=== PATIENT | female | born 1950 | race Caucasian/White ===

== ENCOUNTER 2023-12-02 13:47 | Emergency (ER) | payer MEDICARE, OTHER, SELFPAY ==
[2023-12-02 13:56] VITALS: BP 124/94
[2023-12-02 14:41] VITALS: BMI 21.6
[2023-12-02 15:00] VITALS: BP 125/77
[2023-12-02 15:32] VITALS: BP 125/77
[2023-12-02] MEDS: NSS 1000 IV (15:39)
--- NOTE | 2023-12-02 15:39 | ED.GENMED ---
History of Present Illness
General
Chief Complaint: Heart Rate Problem
Source: patient
Exam Limitations: none
Time Seen by Provider: 12/02/23 15:26
Nursing documentation reviewed up to this point in time: agreed with
Travel History
Have you had any contact with someone who has COVID-19?: No
Do you have any symptoms of coronavirus? Fever > 100 degrees, chills, cough, shortness of breath, sore throat, loss of taste or smell, muscle aches, or headache?: No
History of Present Illness
History of Present Illness:
73-year-old female with history of HLD, Sjogren's, SVT on Diltiazem 180 mg at bedtime presents stating she gets intermittent bouts of SVT lasting minutes but they usually pass if she lays down for a while. Her last such episode was 3-4 weeks ago.
Today she felt her typical 'funny feeling' in the chest and looked at her watch and her HR was 130's to 150's. This was 4 hours ago and it continues. Denies CP, SOB, it just never lasted this long. Last increase in Diltiazem was 'years ago.' States
'I feel fine.'
Past History
Past History
ED Past Medical History: Arrthythmia (SVT on Cardizem), Hypercholesterolemia and Other (Siogren's, Cataracts,)
ED Past Surgical History: Appendectomy, Gynecological (Ovarian cyst) and Tonsilectomy
Social History
Tobacco: Former smoker
Alcohol: Daily (Wine one glass daily)
Personal:
Living: with family
Review of Systems
Review of Systems
Allergies reviewed?: Yes
All Other Systems: ROS reviewed and negative except as documented in HPI and ROS
Constitutional: Denies fever or fatigue
Cardiac: Reports palpitations ('funny feeling' in chest she gets when she has SVT); Denies chest pain, diaphoresis or syncope
ABD/GI: Denies abdominal pain, nausea or vomiting
: Denies dysuria or difficulty voiding
Musculoskeletal: Reports no symptoms
Skin: Reports no symptoms
Neurological: Reports no symptoms
Phy Exam
Physical Exam
Physical Exam:
GENERAL: No acute distress. A&Ox3.
CONSTITUTIONAL: Afebrile.
EYES: clear, conjunctivae normal
ENMT: moist mucus membranes, Pharynx nl
RESPIRATORY: Regular respirations, nonlabored, lungs clear.
CARDIOVASCULAR: SVT rate 130-150's. no murmurs, no rubs.
GI: Soft, nontender, normal BS
MUSCULOSKELETAL: Moves with ease. Well perfused.
SKIN: Warm, dry, pink
PSYCH: Normal mood and affect. Well kept, interactive and appropriate
NEUROLOGIC: Awake, alert and oriented. No focal neurological deficits
Course
Orders/Labs/Results
Orders:
Orders
12/02/23 13:50
EKG [Electrocardiogram (*1)] Urgent
Reason for Study: Palpitations
12/02/23 13:51
EKG- Treatment ONCE
12/02/23 15:38
0.9% Sodium Chloride 1000 ml [Nss] 1,000 ml IV BOLUS
12/02/23 15:39
Complete Blood Count/No Diff Urgent
Comprehensive Metabolic Panel Urgent
TSH Urgent
12/02/23 15:43
Troponin I Urgent
12/02/23 15:46
Diltiazem HCl [Cardizem] 10 mg IV NOW STA
12/02/23 16:03
EKG [Electrocardiogram (*1)] Urgent
Reason for Study: Other
Other Reason for Exam: SVT conversion
12/02/23 16:04
EKG- Treatment ONCE
Abnormal Lab Results
12/02/23
15:39
RBC 4.14 L 10^6/uL
(4.20-5.40)
Hct 36.7 L %
(37.0-47.0)
Sodium 132 L mmol/L
(135-145)
Carbon Dioxide 20 L mmol/L
(22-30)
BUN 20 H mg/dl
(7-17)
Total Protein 8.8 H g/dl
(6.3-8.2)
TSH 4.76 H uIU/ml
(0.47-4.68)
12/02/23 15:39
12/02/23 15:39
Vital Signs
Initial and Last Documented VS:
Initial Vital Signs
Temp Pulse Resp BP Pulse Ox
98.4 F 160 22 124/94 95
12/02/23 13:56 12/02/23 13:56 12/02/23 13:56 12/02/23 13:56 12/02/23 13:56
Last Documented Vital Signs
Temp Pulse Resp BP Pulse Ox
98.4 F 64 18 112/82 94
12/02/23 13:56 12/02/23 16:45 12/02/23 16:45 12/02/23 16:00 12/02/23 16:45
MDM/Problems Addressed
MDM/Problems Addressed:
73-year-old female with history of HLD, Sjogren's, SVT on Diltiazem 180 mg at bedtime presents stating she gets intermittent bouts of SVT lasting minutes but they usually pass if she lays down for a while. Her last such episode was 3-4 weeks ago.
Today she felt her typical 'funny feeling' in the chest and looked at her watch and her HR was 130's to 150's. This was 4 hours ago and it continues. Denies CP, SOB, it just never lasted this long. Last increase in Diltiazem was 'years ago.' States
'I feel fine.'
EKG: SVT rate 150
3:51 PM
HR 130-140's on bedside monitor
Will give Cardizem [address] Sales, Cardiology notified.
4:30 PM
CBC, CMP with no clinically significant abnormality, IV fluids. BUN 20, IV fluids infusing for mild dehydration
TSH minimally elevated, pt aware, this is not new, pt states 'it's been fluctuating,' followed by her [employer]
After Cardizem, patient converted to NSR.
Dr. Sales agrees that pt is to increase Cardizem to 240 mg HS
Pt will call Dr. Lopez's office tomorrow for follow up
*Critical Care Note
Total Time (30-74mins, 75-104mins- exclusive of procedures): Not Applicable
ED Attending Note
-
Portions of this chart may have been created with voice recognition software.� Occasional wrong word or��sound alike� substitutions may have occurred due to the inherent limitations of voice recognition software.
Discharge Plan
Departure
Patient Disposition: Home (Routine Discharge)
Date of Disposition: 12/02/23
Time of Disposition: 16:41
Patient with high blood pressure during this ER visit?: No
Condition: Good
Discharge Problem:
Paroxysmal supraventricular tachycardia
Instructions: Supraventricular tachycardia (SVT)
Prescriptions:
New
diltiazem HCl 240 mg capsule,extended release 24hr
240 mg PO DAILY Qty: 60 0RF
No Action
pilocarpine HCl 5 mg tablet
5 mg PO BID
atorvastatin 10 mg Tablet
10 mg PO HS
diltiazem HCl 180 mg capsule,extended release 24hr
180 mg PO HS
Theragen Tablet
1 tab PO DAILY
calcium carbonate [Tums Ultra] 400 mg calcium (1,000 mg) Tablet,Chewable
400 mg PO HS
fiber Capsule
3 cap PO DAILY
coenzyme Q10 [CoQ-10] 100 mg Capsule
100 mg PO DAILY
Artificial Tears (PF) 0.1-0.3 % Dropperette
1 drp BOTH EYES BIDPRN PRN (Reason: dry eyes)
Referrals:
Dedra Burkett MD [Family Provider] -
Nima Lopez MD [Active] - Call in 1-3 days for appt
Activity Restrictions/Additional Instructions:
As we discussed, increase your Diltiazem to 240 mg at bedtime. I sent a prescription to your pharmacy for this.
Call Dr. Lopez's office tomorrow, inform of today's visit and ask when they want to see you for follow-up.
Interventions
Interventions:
*Risk Screen - Suicide Last Done: 12/02/23 13:57
*General Assessment Last Done: 12/02/23 13:57
*Neglect/Abuse Screening Last Done: 12/02/23 13:57
ED- Fall Risk Assessment Last Done: 12/02/23 16:57
*ED COVID-19 Vaccine History Last Done: 12/02/23 16:57
*Nursing Disposition Last Done: 12/02/23 16:57
ED- Cardiac Assessment Last Done: 12/02/23 15:32
ED- Pulmonary Assessment Last Done: 12/02/23 15:32
Discharge Date and Time
Discharge Date/Time: 12/02/23 16:57
Print Language: CHINESE
[2023-12-02 15:50] LABS: Hematocrit 36.7 % (37.0-47.0); Hemoglobin 12.5 g/dL (12.0-16.0); Mean Corp Hgb Conc. 34.1 g/dL (33.0-37.0); Mean Corpuscular Hgb 30.2 pg (27.0-31.0); Mean Corpuscular Volume 88.6 fL (81.0-99.0); Platelet Count 314 10^3/uL (130-400); Red Blood Cell Count 4.14 10^6/uL (4.20-5.40); Red Cell Dist. Width 13.6 % (11.5-14.5); White Blood Cell Count 5.4 10^3/uL (4.8-10.8)
[2023-12-02] MEDS: CARDIZEM 10 MG IV (15:59)
[2023-12-02 16:00] VITALS: BP 112/82
[2023-12-02 16:03] LABS: ALT (SGPT) 19 U/L (0-35); AST (SGOT) 32 U/L (14-36); Albumin 3.9 g/dl (3.5-5.0); Alkaline Phosphatase 74 U/L (38-126); Blood Urea Nitrogen 20 mg/dl (7-17); Calcium 9.9 mg/dl (8.4-10.2); Carbon Dioxide 20 mmol/L (22-30); Chloride 104 mmol/L (98-107); Estimated Creatinine Clearance 56 ml/min; Glucose 98 mg/dl (70-99); Potassium 3.8 mmol/L (3.5-5.1); Sodium 132 mmol/L (135-145); Total Bilirubin 0.4 mg/dl (0.2-1.3); Total Protein 8.8 g/dl (6.3-8.2); eGFR > 60.00
[2023-12-02 16:13] LABS: Troponin I < 0.012 ng/ml
[2023-12-02 16:34] LABS: TSH 4.76 uIU/ml (0.47-4.68)
== END 2023-12-02 16:57 | disposition home or self-care (01) ==
LOC: EMR 13:47
PROVIDERS: Registered Nurse; EMERGENCY PHYSICIAN Emergency Medicine; FAMILY PHYSICIAN Family Medicine
DX: I47.19 Other supraventricular tachycardia (principal); E86.0 Dehydration; E78.00 Pure hypercholesterolemia, unspecified; M35.00 Sjogren syndrome, unspecified; Z79.899 Other long term (current) drug therapy; Z87.891 Personal history of nicotine dependence; Z88.0 Allergy status to penicillin
CPT/HCPCS: 99284; 96374; 96361; 80053; 84443; 84484; 85027; 93005

== ENCOUNTER → 2024-03-02 09:06 | Outpatient (REF) | payer MEDICARE, OTHER, SELFPAY ==
[2024-03-02 09:48] LABS: ALT (SGPT) 23 U/L (0-35); AST (SGOT) 36 U/L (14-36); Albumin 4.3 g/dl (3.5-5.0); Alkaline Phosphatase 70 U/L (38-126); Blood Urea Nitrogen 17 mg/dl (7-17); Calcium 9.4 mg/dl (8.4-10.2); Carbon Dioxide 25 mmol/L (22-30); Chloride 103 mmol/L (98-107); Glucose 109 mg/dl (70-99); Potassium 4.1 mmol/L (3.5-5.1); Sodium 137 mmol/L (135-145); Total Bilirubin 0.4 mg/dl (0.2-1.3); Total Protein 9.3 g/dl (6.3-8.2); eGFR > 60.00
[2024-03-02 09:55] LABS: % Basophils 1.1 % (0-2); % Eosinophils 6.8 % (0-6); % Immature Granulocytes 0.3 % (0-0.5); % Lymphocytes 39.2 % (20.5-51.1); % Monocytes 10.1 % (1.7-9.3); % Neutrophils 42.5 % (42.2-75.2); Absolute Eosinophils 0.2 10^3/uL (0-0.7); Absolute Lymphocytes 1.4 10^3/uL (1.2-3.4); Absolute Monocytes 0.4 10^3/uL (0.1-0.6); Absolute Neutrophils 1.5 10^3/uL (1.4-6.5); Hematocrit 40.3 % (37.0-47.0); Hemoglobin 13.6 g/dL (12.0-16.0); Mean Corp Hgb Conc. 33.7 g/dL (33.0-37.0); Mean Corpuscular Hgb 30.5 pg (27.0-31.0); Mean Corpuscular Volume 90.4 fL (81.0-99.0); Mean Platelet Volume 9.1 fL (7.4-10.4); Nucleated Red Blood Cells % 0 %; Platelet Count 359 10^3/uL (130-400); Red Blood Cell Count 4.46 10^6/uL (4.20-5.40); White Blood Cell Count 3.6 10^3/uL (4.8-10.8)
== END ==
LOC: SDSPAT 09:06
PROVIDERS: ATTENDING PHYSICIAN Internal Medicine Cardiovascular Disease; FAMILY PHYSICIAN Family Medicine; OTHER PHYSICIAN Internal Medicine Cardiovascular Disease; OTHER PHYSICIAN Internal Medicine Rheumatology
DX: Z01.818 Encounter for other preprocedural examination (principal); I49.5 Sick sinus syndrome; I47.10 Supraventricular tachycardia, unspecified; I10 Essential (primary) hypertension; I35.0 Nonrheumatic aortic (valve) stenosis
CPT/HCPCS: 36415; 80053; 85025; 93005

== ENCOUNTER 2024-03-30 09:03 | Day surgery (SDC) | payer MEDICARE, OTHER, SELFPAY ==
[2024-03-02 09:13] VITALS: BMI 20.7
[2024-03-30] VITALS (13 sets, daily range): BP systolic 119–160; BP diastolic 47–76
[2024-03-30] MEDS: VANCOCIN 200 IV (09:49)
[2024-03-30] MEDS: NSS 500 IV (09:50)
--- NOTE | 2024-03-30 11:35 | ITS.CL.PACE ---
[facility]aser - Pacemaker Implant
Pacemaker Implant
Procedure Report:
Dual Chamber Pacemaker Placement:
Ms. Gómez is a very pleasant 74 yrs old woman who presented with Tachy Alberto syndrome and severe bradycardia and is recommended for PPM placement.�
Indications: Tachy Alberto syndrome
Date of the Procedure: 03/30/24
Pre-Operative Diagnosis: Tachy Alberto syndrome
Post-Operative Diagnosis: Tachy Alberto syndrome
Procedure Performed: DUAL CHAMBER PACEMAKER IMPLANTATION
Performing Physician:
Broderick Saba MD
Assistants:
EP staff
Anesthesia:
See Anesthesia report
Pre-operative antibiotics:
Vanco and Aztreonam
Detailed Description of the Procedure:
The patient was identified using hospital identification and informed consent obtained for the procedure. The risks were explained including, but not limited to: Bleeding, infection, arrhythmia, stroke, vascular/cardiac/lung puncture, surgery,
pacemaker dependency/device malfunction. All questions were answered.
The patient was brought to the electrophysiology laboratory in stable condition in fasting state. Continuous electrocardiographic and hemodynamic monitoring was initiated.
The initial rhythm was normal sinus rhythm.
A surgical pause and time out was performed immediately prior to the procedure with review of her medical history, recent labs, allergies and medications with site of procedure identified and consent noted in the chart. Antibiotics pre operatively
given. All team members concurred.
The procedure site was meticulously prepared with surgical scrub and allowed to dry with no pooling. Sterile draping was applied to cover the procedure site. The image intensifier was draped with sterile bag and positioned over the patient.
The left infraclavicular region was prepped and draped in the usual sterile fashion. Local anesthesia was administered subcutaneously using 1% lidocaine / Bupivacaine. The left cephalic vein cutdown was performed with an incision at the
delto-pectoral groove, and vascular sheaths were introduced for lead access. These were advanced into the right ventricle and the right atrium.
There were extreme tortuosity noted in the subclavian vein and long sheaths were needed. The cardiac chambers were rotated as well.
The right ventricular lead was secured in position with an active fixation technique at the apical septal location.
The RA lead was attached in the right atrial appendage with active fixation.
There was excellent sensing, pacing, and impedance from the leads, with no diaphragmatic stimulation at 10 V output.�Bovie cautery, antibiotics, and fluoroscopy were used.
The sheaths were withdrawn, and the thresholds remained acceptable. The leads were secured in position at the venous entry site with 0-silk. A pocket was fashioned contiguous to the incision. The electrode terminals were connected to the pulse
generator, which was placed into the pocket. The wound was irrigated thoroughly with antibiotic solution.
The wound was closed in 3 layers using 2-0 V loc then two layers of 4-0 V loc sutures to the dermis. Steri-strips were applied externally and covered with Aquacel bandage.
Procedure End:
The procedure was tolerated well.
Estimated Blood loss:
2 cc
Specimens Removed:
No cultures and no specimens were obtained. No intraoperative pathology was identified.
Fluoro time:
0.2 min / 0.24mGy
Urine output:
None
Packs / Drains/ Tubes:
None
Instrument / Sponge Count Correct:
Yes
Complications of the Procedure:
None
Condition of Patient at Time of Transfer:
Hemodynamically stable with no neurological or vascular compromise.
Device information:�
Generator: [facility]; Model: W1DR01; Serial # [id number]�
Atrial Lead:
[facility]; Model: 5076-45; Serial # [id number]�
Measured data in the right atrium was sensing of 2.0 mV, impedance of 838 ohms and threshold of 1.0 V at 0.4ms.
RV Lead:
[employer]; Model: 5076-52; Serial # [id number]
Measured data in the RV lead was sensing of 8 mV, impedance of 940 ohms and threshold of 0.75 V at 0.4ms�
Alberto parameter settings were AAIR < = > DDDR 60-130 bpm. �
����������� Mode Switch: On
����������� Paced AV interval: 180ms
����������� Sensed AV interval: 150 ms.
����������� Rate Adaptive A-V Interval: Off
Output parameters:
����������������������� Amplitude (V)������������� Pulse Width (ms)������� Sensitivity (mV)
����������� RA: ���� 3.5 ����������������� ����������� 0.4������������������ ����������� 0.3
����������� RV:����� 3.5������������������ ����������� 0.4������������������ ����������� 0.9
Summary:
Successful implantation of MRI compatible dual chamber pacemaker
Results/Recommendations:
-Please follow up CXR�
1. Please provide patient with adequate pain control�
Instructions to be given to patient:�
- Please follow up with Cardiology at [address] [place] [address] ([phone]) to get your wound checked within 14 days of your discharge.
- Do not wet incision site until after it is evaluated at cardiology clinic. No soaking or bath until then. Showers or Sponge baths are OK.�Dab dry the area after a shower.
- Do not lift left elbow above shoulder, particularly with sudden jerking movements, for 1 month�
- Do not lift anything weighing more than 10 pounds with the left arm for 1 month�
- If you notice any fevers, shortness of breath, lightheadedness, chest pain, or worsening swelling in the wound site, please contact the arrhythmia clinic, contact your hospitality director, or present to the hospital for evaluation.�
Broderick Saba MD
Electrophysiology
[2024-03-30] MEDS: TYLENOL 650 MG PO (12:08)
--- NOTE | 2024-03-30 16:00 | W.PN.UPDATE ---
Update Note
Progress Note Update
Pt seen post PPM implant. Left ACW aquacel dressing CDI, no ht/bleeding. Sling on overnight. Activity limitations reviewed with pt. Post CXR w/stable lead position, no pneumothorax. Post EKG Apaced 66, underlying sinus rhythm. Will continue all meds
as before. Incision check in 1 week at [facility] arranged. Home today if device site/tele remain stable.
== END 2024-03-30 15:35 | disposition home or self-care (01) ==
LOC: CATH 09:03
PROVIDERS: ATTENDING PHYSICIAN Internal Medicine Cardiovascular Disease; FAMILY PHYSICIAN Family Medicine; OTHER PHYSICIAN Internal Medicine Cardiovascular Disease; OTHER PHYSICIAN Internal Medicine Rheumatology
DX: I49.5 Sick sinus syndrome (principal); I47.10 Supraventricular tachycardia, unspecified; I10 Essential (primary) hypertension; E78.5 Hyperlipidemia, unspecified; K21.9 Gastro-esophageal reflux disease without esophagitis; M19.90 Unspecified osteoarthritis, unspecified site; M35.00 Sjogren syndrome, unspecified; Z87.891 Personal history of nicotine dependence; Z82.49 Family history of ischemic heart disease and other diseases of the circulatory system
CPT/HCPCS: 33208; C1892; 71045; 93005; C1785; C1898

== ENCOUNTER → 2024-04-07 10:16 | Outpatient (REF) | payer MEDICARE, OTHER, SELFPAY ==
[2024-04-07 13:36] LABS: % Basophils 0.8 % (0-2); % Eosinophils 5.5 % (0-6); % Immature Granulocytes 0.4 % (0-0.5); % Lymphocytes 25.8 % (20.5-51.1); % Monocytes 12.2 % (1.7-9.3); % Neutrophils 55.3 % (42.2-75.2); Absolute Eosinophils 0.3 10^3/uL (0-0.7); Absolute Lymphocytes 1.2 10^3/uL (1.2-3.4); Absolute Monocytes 0.6 10^3/uL (0.1-0.6); Absolute Neutrophils 2.6 10^3/uL (1.4-6.5); Hematocrit 37.5 % (37.0-47.0); Hemoglobin 12.7 g/dL (12.0-16.0); Mean Corp Hgb Conc. 33.9 g/dL (33.0-37.0); Mean Corpuscular Hgb 30.8 pg (27.0-31.0); Mean Corpuscular Volume 90.8 fL (81.0-99.0); Mean Platelet Volume 9.5 fL (7.4-10.4); Nucleated Red Blood Cells % 0 %; Platelet Count 326 10^3/uL (130-400); Red Blood Cell Count 4.13 10^6/uL (4.20-5.40); Red Cell Dist. Width 13.5 % (11.5-14.5); White Blood Cell Count 4.8 10^3/uL (4.8-10.8)
== END ==
LOC: REG 10:16
PROVIDERS: ATTENDING PHYSICIAN Nurse Practitioner; FAMILY PHYSICIAN Family Medicine
DX: R06.02 Shortness of breath (principal)
CPT/HCPCS: 93308; 36415; 85025; 93321; 93325

== ENCOUNTER 2024-05-20 10:01 | Emergency (ER) | payer MEDICARE, OTHER, SELFPAY ==
[2024-05-20 10:08] VITALS: BP 160/86
[2024-05-20 10:52] LABS: INR 0.96; PT 12.8 Sec (11.4-14.6)
[2024-05-20 10:54] LABS: ALT (SGPT) 27 U/L (0-35); AST (SGOT) 39 U/L (14-36); Albumin 4.4 g/dl (3.5-5.0); Alkaline Phosphatase 78 U/L (38-126); Blood Urea Nitrogen 17 mg/dl (7-17); Calcium 9.6 mg/dl (8.4-10.2); Carbon Dioxide 25 mmol/L (22-30); Chloride 102 mmol/L (98-107); Glucose 96 mg/dl (70-99); Potassium 4.4 mmol/L (3.5-5.1); Sodium 137 mmol/L (135-145); Total Bilirubin 0.4 mg/dl (0.2-1.3); Total Protein 9.5 g/dl (6.3-8.2); eGFR 58.75
--- NOTE | 2024-05-20 11:44 | ED.GENMED ---
History of Present Illness
General
Chief Complaint: Chest Pain
Source: patient
Time Seen by Provider: 05/20/24 11:27
History of Present Illness
History of Present Illness:
74-year-old female presents the emergency room complaining of chest pain. Pain is located in her anterior chest. Pain began around dinnertime last evening. It has been constant since then. Deep breaths seem to make it worse. Also seems worse
with certain movements. She does not feel short of breath. Patient notes that she did just returned from a trip to [place]. She did have a bit of a viral illness that she is recovering from while there. Pain is not worse with exertion. She has
not had any associated nausea or diaphoresis.
Past History
Past History
ED Past Medical History: Arrthythmia (SVT on Cardizem), Hypercholesterolemia and Other (Siogren's, Cataracts,)
ED Past Surgical History: Appendectomy, Gynecological (Ovarian cyst) and Tonsilectomy
Social History
Tobacco: Former smoker
Alcohol: Daily (Wine one glass daily)
Personal:
Living: with family
Phy Exam
Physical Exam
Physical Exam:
General: Awake, Alert, Oriented X3. No acute distress.
Vitals: unremarkable
Head: Atraumatic
Eyes: Pupils equal, EOMI
Throat: Airway intact, no exudates
Neck: Trachea midline
Lungs: Clear and equal b/l
Heart: Regular rate, 2/6 systolic murmurs
Abd: Soft, Nontender, No pulsatile mass
Neuro: Nonfocal
Skin: Warm, dry, no rash
Extremities: pulses equal b/l, no edema
Course
Orders/Labs/Results
Orders:
Orders
05/20/24 10:03
Electrocardiogram (*1) Urgent
Reason for Study: Chest Pain
EKG- Treatment ONCE
05/20/24 10:12
Complete Blood Count/With Diff Urgent
Troponin I Urgent
05/20/24 10:33
Comprehensive Metabolic Panel Urgent
PT/INR [Prothrombin Time] Urgent
05/20/24 11:43
D-Dimer Urgent
Abnormal Lab Results
05/20/24
10:33
AST 39 H U/L
(14-36)
Total Protein 9.5 H g/dl
(6.3-8.2)
05/20/24 10:33
Vital Signs
Initial and Last Documented VS:
Initial Vital Signs
Temp Pulse Resp BP Pulse Ox
98.0 F 67 16 160/86 98
05/20/24 10:08 05/20/24 10:08 05/20/24 10:08 05/20/24 10:08 05/20/24 10:08
Last Documented Vital Signs
Temp Pulse Resp BP Pulse Ox
98.0 F 67 16 160/86 98
05/20/24 10:08 05/20/24 10:08 05/20/24 10:08 05/20/24 10:08 05/20/24 10:08
*Pulse Oximetry
Patient hypoxic: no
*EKG
Interpreted by ED Provider?: Yes
Interpretation: abnormal
Heart Rate: 72
Rate: normal
Rhythm: other (Atrial paced)
Interval: normal interval
QRS Pattern: normal QRS
Ischemia: no ischemia
ED Attending Note
-
Portions of this chart may have been created with voice recognition software.� Occasional wrong word or��sound alike� substitutions may have occurred due to the inherent limitations of voice recognition software.
Discharge Plan
Departure
Prescriptions:
No Action
pilocarpine HCl 5 mg tablet
5 mg PO BID
atorvastatin 10 mg Tablet
10 mg PO HS
calcium carbonate [Tums Ultra] 400 mg calcium (1,000 mg) Tablet,Chewable
400 mg PO HSPRN PRN (Reason: indigestion)
coenzyme Q10 [CoQ-10] 100 mg Capsule
100 mg PO DAILY
Artificial Tears (PF) 0.1-0.3 % Dropperette
1 drp BOTH EYES BIDPRN PRN (Reason: dry eyes)
calcium carbonate-vitamin D3 600 mg-5 mcg (200 unit) Tablet
1 tab PO DAILY
famotidine [Pepcid AC] 20 mg Tablet
20 mg PO DAILYPRN PRN (Reason: gerd)
fiber Tablet
3 tab PO DAILY
diltiazem HCl 240 mg capsule,extended release 24hr
240 mg PO HS
multivitamin Tablet
1 tab PO DAILY
Interventions
Interventions:
*Risk Screen - Suicide Last Done: 05/20/24 10:08
*Neglect/Abuse Screening Last Done: 05/20/24 10:08
Discharge Date and Time
Print Language: AZERBAIJANI
[2024-05-20 12:18] LABS: % Basophils 0.7 % (0-2); % Eosinophils 4.6 % (0-6); % Immature Granulocytes 0.4 % (0-0.5); % Monocytes 8.9 % (1.7-9.3); % Neutrophils 62.4 % (42.2-75.2); Absolute Eosinophils 0.3 10^3/uL (0-0.7); Absolute Lymphocytes 1.3 10^3/uL (1.2-3.4); Absolute Monocytes 0.5 10^3/uL (0.1-0.6); Absolute Neutrophils 3.4 10^3/uL (1.4-6.5); Hematocrit 38.4 % (37.0-47.0); Hemoglobin 13.1 g/dL (12.0-16.0); Mean Corp Hgb Conc. 34.1 g/dL (33.0-37.0); Mean Corpuscular Hgb 29.4 pg (27.0-31.0); Mean Corpuscular Volume 86.1 fL (81.0-99.0); Mean Platelet Volume 8.6 fL (7.4-10.4); Nucleated Red Blood Cells % 0 %; Platelet Count 328 10^3/uL (130-400); Red Blood Cell Count 4.46 10^6/uL (4.20-5.40); Red Cell Dist. Width 13.7 % (11.5-14.5); White Blood Cell Count 5.5 10^3/uL (4.8-10.8)
[2024-05-20 12:46] LABS: D-Dimer 2.76 ug/mlFEU (0.00-0.50)
[2024-05-20 13:58] LABS: Troponin I < 0.012 ng/ml
[2024-05-20 15:05] VITALS: BP 152/67
[2024-05-20] MEDS: TORADOL 15 MG IV (15:19)
[2024-05-20 15:21] VITALS: BP 152/67; BMI 21.3
--- NOTE | 2024-05-20 15:33 | ED.ADDNOTE ---
ED Addendum
ED Addendum
ED Addendum Note:
The patient appears very comfortable. The symptoms worsened when she walked to the bathroom and seems to worsen when she changes position. Troponin negative and symptoms started yesterday. CT suggest pneumonitis however the patient does not have
pneumonia symptoms. She reports no shortness of breath. There is no PE. I informed patient of the nodular density seen and recommended he follows up with PCP for PET/CT evaluation.
[2024-05-20 16:59] VITALS: BP 119/54
== END 2024-05-20 16:15 | disposition home or self-care (01) ==
LOC: EMR 10:01
PROVIDERS: EMERGENCY PHYSICIAN Emergency Medicine; FAMILY PHYSICIAN Family Medicine
DX: R07.89 Other chest pain (principal); I47.10 Supraventricular tachycardia, unspecified; E78.00 Pure hypercholesterolemia, unspecified; M35.00 Sjogren syndrome, unspecified; Z79.899 Other long term (current) drug therapy; Z87.891 Personal history of nicotine dependence; Z88.0 Allergy status to penicillin
CPT/HCPCS: 99285; 96374; 71275; 80053; 84484; 85025; 85379; 85610; 93005; Q9967

== ENCOUNTER → 2024-06-29 09:14 | Outpatient (REF) | payer MEDICARE, OTHER, SELFPAY | LOC: RAD 09:14 | PROVIDERS: ATTENDING PHYSICIAN Internal Medicine Critical Care Medicine; FAMILY PHYSICIAN Family Medicine; REFERRING PHYSICIAN Internal Medicine Rheumatology | DX: R91.1 Solitary pulmonary nodule (principal) | CPT/HCPCS: 71250 ==

== ENCOUNTER 2024-07-20 06:16 | Day surgery (SDC) | payer MEDICARE, OTHER, SELFPAY ==
[2024-07-15 12:42] VITALS: BMI 20.8
[2024-07-20] VITALS (7 sets, daily range): BP systolic 121–139; BP diastolic 57–78; BMI 20.7
[2024-07-20] MEDS: DUONEB 3 ML INH (07:09)
== END 2024-07-20 12:27 | disposition home or self-care (01) ==
LOC: SDS 06:16
PROVIDERS: ATTENDING PHYSICIAN Internal Medicine Critical Care Medicine
DX: R91.1 Solitary pulmonary nodule (principal); R93.89 Abnormal findings on diagnostic imaging of other specified body structures
CPT/HCPCS: 31629; 31623; 31652; 43238; 31628; 31624; 88172; 88173; 88305; 88312; 71045; 76000; 87015; 87070; 87102; 87116; 87205; 88112; 88333; 88341; 88342; 94640; C1887

== ENCOUNTER → 2024-08-27 10:24 | Outpatient (REF) | payer MEDICARE, OTHER, SELFPAY | LOC: HWWDC 10:24 | PROVIDERS: ATTENDING PHYSICIAN Family Medicine; REFERRING PHYSICIAN Internal Medicine Rheumatology | DX: Z12.31 Encounter for screening mammogram for malignant neoplasm of breast (principal) | CPT/HCPCS: 77063; 77067 ==

== ENCOUNTER → 2024-12-04 13:50 | Outpatient (REF) | payer MEDICARE, OTHER, SELFPAY | LOC: HWRAD 13:50 | PROVIDERS: ATTENDING PHYSICIAN Internal Medicine Critical Care Medicine; FAMILY PHYSICIAN Family Medicine | DX: R91.1 Solitary pulmonary nodule (principal) | CPT/HCPCS: 71250 ==

== ENCOUNTER → 2025-06-09 15:22 | Outpatient (REF) | payer MEDICARE, OTHER, SELFPAY | LOC: RAD 15:22 | PROVIDERS: ATTENDING PHYSICIAN Internal Medicine Critical Care Medicine; FAMILY PHYSICIAN Family Medicine | DX: R91.1 Solitary pulmonary nodule (principal) | CPT/HCPCS: 71250 ==